=== PATIENT | male | born 1965 | race Caucasian/White ===

== ENCOUNTER 2021-01-31 13:25 | Inpatient (IN) | payer BC ==
[2021-01-31 14:45] LABS: BASO % 0.3 % (0-2.0); HEMATOCRIT 25.7 % (35.4-49); HEMOGLOBIN 8.7 GM/dL (11.7-16.9); MCH 27.6 pg (25.7-33.7); MCHC 33.7 g/dl (32.0-35.9); MEAN CELL VOLUME 81.7 fl (80-96); MEAN PLT VOLUME 7.6 fl (7.5-11.1); MONO % 2.8 % (3.8-10.2); NEUT % 82.9 % (42.8-82.8); PLATELET COUNT 291 10^3/uL (134-434); RBC 3.15 M/mm3 (4.00-5.60); RDW 13.3 % (11.9-15.9)
[2021-01-31 14:53] LABS: VENOUS BASE EXCESS -12.2 mmol/L (-2-2); VENOUS O2 SATURATION 67.5 % (70-80); VENOUS PCO2 32.3 mmHg (38-52); VENOUS PH 7.251 (7.310-7.410)
[2021-01-31] MEDS ORDERED: PIPERACILLIN/TAZOB 3.375 GM 3.375 GM in DEXTROSE 5%-WATER - 50 ML IVPB ONE (15:02)
[2021-01-31] MEDS ORDERED: VANCOMYCIN 1 GM in D5W (PRE-DOCKED) 1,000 MG/250 ML IVPB ONE (15:02)
[2021-01-31 15:07] LABS: CHLORIDE 108 mmol/L (98-107); SODIUM 134 mmol/L (136-145)
[2021-01-31] MEDS ORDERED: SODIUM CHLORIDE 0.9% 1000 ML INFUS.BAG IV ONE (15:07)
[2021-01-31 15:09] LABS: ALBUMIN 1.8 g/dl (3.4-5.0); ANION GAP 9 MMOL/L (8-16); BLOOD UREA NITROGEN 76.3 mg/dL (7-18); CALCIUM 7.9 mg/dL (8.5-10.1); CO2 17 mmol/L (21-32)
[2021-01-31 15:12] LABS: CREATININE 4.1 mg/dL (0.55-1.3); SGPT/ALT 20 U/L (13-61)
[2021-01-31 15:13] LABS: SGOT/AST 27 U/L (15-37)
[2021-01-31 15:14] LABS: BILIRUBIN,TOTAL 0.3 mg/dL (0.2-1); GLUCOSE,RANDOM 439 mg/dL (74-106); TOT PROT 5.6 g/dl (6.4-8.2)
[2021-01-31 15:15] LABS: ALK PHOS 77 U/L (45-117)
[2021-01-31] MEDS ORDERED: PIPERACILLIN/TAZOB 3.375 GM 3.375 GM/50 ML BAG IVPB ONE (15:23)
[2021-01-31] MEDS ORDERED: VANCOMYCIN 1 GRAM (PRE-DOCKED) 1,000 MG/250 ML BAG IVPB ONE (15:23)
[2021-01-31] MEDS ORDERED: ALBUTEROL SO4 HFA INHALER IH PRN (20:52)
[2021-01-31] MEDS ORDERED: ACETAMINOPHEN 325 MG TABLET (FP) PO PRN (20:57)
[2021-01-31 21:03] LABS: INR 0.94 (0.83-1.09); PROTHROMBIN TIME (PATIENT) 11.5 SEC (9.7-13.0)
[2021-01-31 21:06] LABS: ACTIVATED PTT 29.9 SECONDS (25.2-36.5)
[2021-01-31 21:17] LABS: BILIRUBIN,DIRECT 0.1 mg/dL (0.0-0.2)
[2021-01-31] MEDS ORDERED: GABAPENTIN 100 MG CAPSULE ONE (22:05)
[2021-01-31] MEDS ORDERED: HEPARIN NA (PORCINE) 5,000 UNITS/ML 1ML VIAL ONE (22:05)
[2021-01-31] MEDS: HEPARIN NA (PORCINE) 5,000 UNITS/ML 1ML VIAL SQ SCH (22:27)
[2021-01-31] MEDS: GABAPENTIN 300 MG CAPSULE PO SCH (22:27)
[2021-01-31] MEDS ORDERED: PIPERACILLIN/TAZOB 2.25 GM 2.25 GM in DEXTROSE 5%-WATER - 50 ML IVPB SCH (22:29)
[2021-01-31] MEDS ORDERED: PIPERACILLIN/TAZOB 2.25 GM 2.25 GM/50 ML BAG IVPB ONE (23:25)
[2021-01-31] MEDS: PIPERACILLIN/TAZOB 2.25 GM 2.25 GM in DEXTROSE 5%-WATER - 50 ML IVPB SCH (23:33)
[2021-01-31] MEDS ORDERED: SODIUM CHLORIDE 1,000 ML IV SCH (23:45)
[2021-02-01 00:12] VITALS: BMI 25.7
[2021-02-01] MEDS ORDERED: PNEUMOC 13-VAL CONJ-DIP CRM/PF 0.5 ML DISP.SYRIN IM ONE (00:15)
[2021-02-01] MEDS: PIPERACILLIN/TAZOB 2.25 GM 2.25 GM in DEXTROSE 5%-WATER - 50 ML IVPB SCH ×4 (04:04→18:03)
[2021-02-01] MEDS ORDERED: PIPERACILLIN/TAZOBACTAM 2.25 GM VIAL IVPB ONE ×4 (05:01→17:02)
[2021-02-01] MEDS ORDERED: DEXTROSE 5%-WATER - 50 ML IVPB ONE ×5 (05:01→17:02)
[2021-02-01] MEDS: GABAPENTIN 300 MG CAPSULE PO SCH ×3 (05:04→21:33)
[2021-02-01] MEDS: HEPARIN NA (PORCINE) 5,000 UNITS/ML 1ML VIAL SQ SCH ×3 (05:04→21:32)
[2021-02-01 06:35] LABS: HEMATOCRIT 26.8 % (35.4-49); HEMOGLOBIN 9.2 GM/dL (11.7-16.9); MCH 28.1 pg (25.7-33.7); MCHC 34.5 g/dl (32.0-35.9); MEAN CELL VOLUME 81.3 fl (80-96); MEAN PLT VOLUME 7.9 fl (7.5-11.1); PLATELET COUNT 287 10^3/uL (134-434); RBC 3.29 M/mm3 (4.00-5.60); RDW 13.6 % (11.9-15.9); WHITE BLOOD COUNT 6.3 K/mm3 (4.0-10.0)
[2021-02-01 06:57] LABS: BLOOD UREA NITROGEN 81.1 mg/dL (7-18)
[2021-02-01 07:00] LABS: CALCIUM 7.6 mg/dL (8.5-10.1)
[2021-02-01 07:01] LABS: PHOSPHOROUS 3.6 mg/dL (2.5-4.9)
[2021-02-01] MEDS ORDERED: SODIUM CHLORIDE 0.45% 1,000 ML IV SCH (07:15)
[2021-02-01] MEDS ORDERED: SODIUM ZIRCONIUM CYCLOSILICATE (LOKELMA) 5 GM PACKET PO ONE (07:45)
[2021-02-01] MEDS ORDERED: SODIUM BICARBONATE 650 MG TABLET PO SCH (07:45)
[2021-02-01] MEDS ORDERED: PNEUMOCOCCAL 23 VACCINE 0.5 ML VIAL IM ONE (10:00)
[2021-02-01] MEDS ORDERED: FLU VACC QS2021-22(6MOS UP)/PF 60 MCG/0.5 ML SYRINGE IM ONE (10:00)
[2021-02-01] MEDS ORDERED: amLODIPine BESYLATE 10 MG TABLET (FP) PO SCH (10:00)
[2021-02-01] MEDS ORDERED: metoPROLOL SUCCINATE 25 MG TAB.SR.24H (FP) PO SCH (10:00)
[2021-02-01] MEDS ORDERED: SODIUM CHLORIDE 0.9% 500 ML INFUS.BAG IV ONE (10:07)
[2021-02-01] MEDS ORDERED: PT OWN MED DRAWER 7, Y5N ONE ×2 (10:07→13:10)
[2021-02-01] MEDS ORDERED: ACETAMINOPHEN 1000 MG/100 ML VIAL (NON FORMULARY) IVPB PRN (10:07)
[2021-02-01] MEDS: guaiFENesin/D-M SUGAR-FREE/ACLHOL-FREE 118 ML BOTTLE PO PRN (10:11)
[2021-02-01] MEDS: CYCLOBENZAPRINE HCL 10 MG TABLET (FP) PO PRN (10:11)
[2021-02-01] MEDS ORDERED: CEFTRIAXONE 1 GM in DEXTROSE 5%-WATER - 50 ML IVPB SCH ×2 (10:15→10:45)
[2021-02-01 10:39] LABS: BASO % 0.4 % (0-2.0); EOS % 0.1 % (0-4.5); HEMATOCRIT 26.9 % (35.4-49); HEMOGLOBIN 9.2 GM/dL (11.7-16.9); LYMPH % 16.3 % (8-40); MCH 27.4 pg (25.7-33.7); MCHC 34.1 g/dl (32.0-35.9); MEAN CELL VOLUME 80.4 fl (80-96); MEAN PLT VOLUME 7.6 fl (7.5-11.1); MONO % 2.9 % (3.8-10.2); NEUT % 80.3 % (42.8-82.8); PLATELET COUNT 289 10^3/uL (134-434); RBC 3.35 M/mm3 (4.00-5.60); RDW 13.7 % (11.9-15.9); WHITE BLOOD COUNT 5.7 K/mm3 (4.0-10.0)
[2021-02-01] MEDS ORDERED: cefTRIAXone SODIUM 1 GM VIAL ONE (10:44)
[2021-02-01] MEDS: AZITHROMYCIN IVPB 500 MG/250 ML BAG IVPB SCH (10:51)
[2021-02-01] MEDS: INSULIN SLIDING SCALE (NOVOLOG) 1 VIAL SQ SCH ×4 (11:08→21:45)
[2021-02-01 11:36] LABS: BLOOD UREA NITROGEN 76.6 mg/dL (7-18); CALCIUM 7.9 mg/dL (8.5-10.1); CREATININE 3.9 mg/dL (0.55-1.3)
[2021-02-01 11:44] LABS: ALBUMIN 1.6 g/dl (3.4-5.0); BILIRUBIN,TOTAL 0.8 mg/dL (0.2-1); BLOOD UREA NITROGEN 74.7 mg/dL (7-18); CREATININE 3.9 mg/dL (0.55-1.3); TOT PROT 5.4 g/dl (6.4-8.2)
[2021-02-01] MEDS: SODIUM BICARBONATE 8.4% - 150 MEQ in DEXTROSE 5%-WATER - 950 ML IV SCH (13:50)
[2021-02-01] MEDS ORDERED: VANCOMYCIN 1 GM in D5W (PRE-DOCKED) 1,000 MG/250 ML IVPB SCH (16:00)
[2021-02-01 19:42] LABS: EPI CELLS 3 /uL (0-25.1); HYALINE CASTS 1 /uL (0-3.1); PH,URINE 5.5 (5.0-8.0); URINE APPEARANCE CLEAR; URINE BACTERIA 7 /uL (0-1359); URINE BILIRUBIN NEGATIVE (NEGATIVE); URINE COLOR YELLOW; URINE GLUCOSE (UA) 2+ (NEGATIVE); URINE KETONE NEGATIVE (NEGATIVE); URINE LEUK ESTERASE NEGATIVE (NEGATIVE); URINE NITRITE NEGATIVE (NEGATIVE); URINE PROTEIN 3+ (NEGATIVE); URINE RBC 49 /uL (0-23.9); URINE UROBILINOGEN 0.2 mg/dL (0.2-1.0); URINE WBC 6 /uL (0-25.8)
[2021-02-01] MEDS: LABETALOL HCL 200 MG TABLET (FP) PO SCH (21:33)
[2021-02-01] MEDS: ATORVASTATIN CA 10 MG TABLET (FP) PO SCH (21:33)
[2021-02-01] MEDS ORDERED: INSULIN (LEVEMIR) 100 UNITS/ML UNITS SQ SCH (22:00)
[2021-02-02] MEDS: SODIUM BICARBONATE 8.4% - 150 MEQ in DEXTROSE 5%-WATER - 950 ML IV SCH (02:39)
[2021-02-02] MEDS: PIPERACILLIN/TAZOB 2.25 GM 2.25 GM in DEXTROSE 5%-WATER - 50 ML IVPB SCH ×3 (02:39→18:41)
[2021-02-02] MEDS ORDERED: PIPERACILLIN/TAZOBACTAM 2.25 GM VIAL IVPB ONE ×3 (05:39→17:57)
[2021-02-02] MEDS ORDERED: DEXTROSE 5%-WATER - 50 ML IVPB ONE ×3 (05:39→17:57)
[2021-02-02] MEDS: HEPARIN NA (PORCINE) 5,000 UNITS/ML 1ML VIAL SQ SCH ×3 (06:03→21:45)
[2021-02-02] MEDS: GABAPENTIN 300 MG CAPSULE PO SCH ×3 (06:03→21:45)
[2021-02-02] MEDS: INSULIN SLIDING SCALE (NOVOLOG) 1 VIAL SQ SCH ×4 (06:04→21:57)
[2021-02-02 06:59] LABS: BASO % 0.4 % (0-2.0); EOS % 0.4 % (0-4.5); HEMATOCRIT 24.8 % (35.4-49); HEMOGLOBIN 8.5 GM/dL (11.7-16.9); LYMPH % 25.2 % (8-40); MCH 27.4 pg (25.7-33.7); MCHC 34.4 g/dl (32.0-35.9); MEAN CELL VOLUME 79.6 fl (80-96); MEAN PLT VOLUME 7.7 fl (7.5-11.1); MONO % 5.9 % (3.8-10.2); NEUT % 68.1 % (42.8-82.8); PLATELET COUNT 292 10^3/uL (134-434); RBC 3.11 M/mm3 (4.00-5.60); RDW 13.6 % (11.9-15.9); WHITE BLOOD COUNT 5.4 K/mm3 (4.0-10.0)
[2021-02-02 07:08] LABS: CALCIUM 7.8 mg/dL (8.5-10.1)
[2021-02-02 07:09] LABS: ALBUMIN 1.4 g/dl (3.4-5.0); MAGNESIUM 2.2 mg/dL (1.8-2.4)
[2021-02-02 07:11] LABS: BLOOD UREA NITROGEN 58.4 mg/dL (7-18); URIC ACID 6.2 mg/dL (2.6-7.2)
[2021-02-02 07:12] LABS: CREATININE 3.2 mg/dL (0.55-1.3); PHOSPHOROUS 2.9 mg/dL (2.5-4.9)
[2021-02-02 07:13] LABS: BILIRUBIN,TOTAL 0.2 mg/dL (0.2-1); TOT PROT 5.1 g/dl (6.4-8.2)
[2021-02-02] MEDS: LACTATED RINGERS SOLUTION 1,000 ML/1,000 ML INFUS.BAG IV SCH (10:34)
[2021-02-02] MEDS: CYCLOBENZAPRINE HCL 10 MG TABLET (FP) PO PRN (10:35)
[2021-02-02] MEDS: guaiFENesin/D-M SUGAR-FREE/ACLHOL-FREE 118 ML BOTTLE PO PRN (10:35)
[2021-02-02] MEDS: LABETALOL HCL 200 MG TABLET (FP) PO SCH ×2 (10:35→21:46)
[2021-02-02] MEDS: AZITHROMYCIN IVPB 500 MG/250 ML BAG IVPB SCH (10:36)
[2021-02-02] MEDS: DEXAMETHASONE SOD PHOSPHATE 10 MG/1 ML VIAL IVPUSH SCH (15:04)
[2021-02-02] MEDS: ATORVASTATIN CA 10 MG TABLET (FP) PO SCH (21:46)
[2021-02-02] MEDS: INSULIN (LEVEMIR) 100 UNITS/ML UNITS SQ SCH (21:57)
[2021-02-03] MEDS: PIPERACILLIN/TAZOB 2.25 GM 2.25 GM in DEXTROSE 5%-WATER - 50 ML IVPB SCH ×3 (01:08→17:26)
[2021-02-03] MEDS: LACTATED RINGERS SOLUTION 1,000 ML/1,000 ML INFUS.BAG IV SCH ×2 (01:09→10:54)
[2021-02-03] MEDS ORDERED: PIPERACILLIN/TAZOBACTAM 2.25 GM VIAL IVPB ONE ×3 (01:11→17:23)
[2021-02-03] MEDS ORDERED: DEXTROSE 5%-WATER - 50 ML IVPB ONE ×3 (01:11→17:23)
[2021-02-03] MEDS: GABAPENTIN 300 MG CAPSULE PO SCH ×4 (06:04→22:22)
[2021-02-03] MEDS: HEPARIN NA (PORCINE) 5,000 UNITS/ML 1ML VIAL SQ SCH ×3 (06:04→22:22)
[2021-02-03] MEDS: INSULIN (LEVEMIR) 100 UNITS/ML UNITS SQ SCH ×2 (06:52→22:23)
[2021-02-03] MEDS: INSULIN SLIDING SCALE (NOVOLOG) 1 VIAL SQ SCH ×4 (06:52→22:22)
[2021-02-03 07:30] LABS: BASO % 0.2 % (0-2.0); HEMATOCRIT 26.7 % (35.4-49); HEMOGLOBIN 9.3 GM/dL (11.7-16.9); LYMPH % 18.6 % (8-40); MCH 27.8 pg (25.7-33.7); MCHC 34.7 g/dl (32.0-35.9); MEAN CELL VOLUME 80.2 fl (80-96); MEAN PLT VOLUME 7.6 fl (7.5-11.1); MONO % 9.7 % (3.8-10.2); NEUT % 71.5 % (42.8-82.8); PLATELET COUNT 334 10^3/uL (134-434); RBC 3.33 M/mm3 (4.00-5.60); RDW 13.3 % (11.9-15.9); WHITE BLOOD COUNT 3.1 K/mm3 (4.0-10.0)
[2021-02-03 07:55] LABS: ALBUMIN 1.4 g/dl (3.4-5.0); CALCIUM 7.7 mg/dL (8.5-10.1)
[2021-02-03 07:56] LABS: BLOOD UREA NITROGEN 54.7 mg/dL (7-18); MAGNESIUM 2.2 mg/dL (1.8-2.4)
[2021-02-03 07:59] LABS: PHOSPHOROUS 3.6 mg/dL (2.5-4.9)
[2021-02-03 08:00] LABS: BILIRUBIN,TOTAL 0.3 mg/dL (0.2-1); TOT PROT 5.3 g/dl (6.4-8.2)
[2021-02-03] MEDS: DEXAMETHASONE SOD PHOSPHATE 10 MG/1 ML VIAL IVPUSH SCH (09:55)
[2021-02-03] MEDS: LABETALOL HCL 200 MG TABLET (FP) PO SCH ×2 (09:56→22:01)
[2021-02-03] MEDS: guaiFENesin/D-M SUGAR-FREE/ACLHOL-FREE 118 ML BOTTLE PO PRN (11:10)
[2021-02-03] MEDS: PANTOPRAZOLE 20 MG TABLET PO SCH (13:23)
[2021-02-03] MEDS: ATORVASTATIN CA 10 MG TABLET (FP) PO SCH (22:01)
[2021-02-04] MEDS ORDERED: PIPERACILLIN/TAZOBACTAM 2.25 GM VIAL IVPB ONE ×3 (01:02→17:19)
[2021-02-04] MEDS ORDERED: DEXTROSE 5%-WATER - 50 ML IVPB ONE ×3 (01:03→17:19)
[2021-02-04] MEDS: PIPERACILLIN/TAZOB 2.25 GM 2.25 GM in DEXTROSE 5%-WATER - 50 ML IVPB SCH ×3 (01:07→17:31)
[2021-02-04] MEDS: HEPARIN NA (PORCINE) 5,000 UNITS/ML 1ML VIAL SQ SCH ×3 (06:32→21:32)
[2021-02-04] MEDS: GABAPENTIN 300 MG CAPSULE PO SCH ×4 (06:32→21:33)
[2021-02-04] MEDS: INSULIN SLIDING SCALE (NOVOLOG) 1 VIAL SQ SCH ×4 (06:42→21:34)
[2021-02-04] MEDS: INSULIN (LEVEMIR) 100 UNITS/ML UNITS SQ SCH ×2 (06:43→21:33)
[2021-02-04] MEDS ORDERED: PT OWN MED DRAWER 7, Y5N ONE ×2 (07:13→10:05)
[2021-02-04] MEDS: LABETALOL HCL 200 MG TABLET (FP) PO SCH ×2 (10:08→21:33)
[2021-02-04] MEDS: PANTOPRAZOLE 20 MG TABLET PO SCH (10:08)
[2021-02-04] MEDS: DEXAMETHASONE SOD PHOSPHATE 10 MG/1 ML VIAL IVPUSH SCH (10:09)
[2021-02-04] MEDS: guaiFENesin/D-M SUGAR-FREE/ACLHOL-FREE 118 ML BOTTLE PO PRN (10:11)
[2021-02-04] MEDS: LACTATED RINGERS SOLUTION 1,000 ML/1,000 ML INFUS.BAG IV SCH (12:05)
[2021-02-04] MEDS: ATORVASTATIN CA 10 MG TABLET (FP) PO SCH (21:33)
[2021-02-05] MEDS ORDERED: PIPERACILLIN/TAZOBACTAM 2.25 GM VIAL IVPB ONE ×2 (01:24→08:58)
[2021-02-05] MEDS ORDERED: DEXTROSE 5%-WATER - 50 ML IVPB ONE ×2 (01:24→08:58)
[2021-02-05] MEDS: PIPERACILLIN/TAZOB 2.25 GM 2.25 GM in DEXTROSE 5%-WATER - 50 ML IVPB SCH ×2 (01:46→09:44)
[2021-02-05] MEDS: INSULIN SLIDING SCALE (NOVOLOG) 1 VIAL SQ SCH ×4 (06:13→21:13)
[2021-02-05] MEDS: GABAPENTIN 300 MG CAPSULE PO SCH ×3 (06:13→21:13)
[2021-02-05] MEDS: HEPARIN NA (PORCINE) 5,000 UNITS/ML 1ML VIAL SQ SCH ×3 (06:13→21:12)
[2021-02-05] MEDS: INSULIN (LEVEMIR) 100 UNITS/ML UNITS SQ SCH ×2 (06:13→21:12)
[2021-02-05 07:03] LABS: BASO % 0.1 % (0-2.0); HEMATOCRIT 25.8 % (35.4-49); HEMOGLOBIN 9.1 GM/dL (11.7-16.9); LYMPH % 12.7 % (8-40); MCH 27.8 pg (25.7-33.7); MCHC 35.2 g/dl (32.0-35.9); MEAN CELL VOLUME 79.1 fl (80-96); MEAN PLT VOLUME 7.4 fl (7.5-11.1); MONO % 9.2 % (3.8-10.2); PLATELET COUNT 422 10^3/uL (134-434); RBC 3.26 M/mm3 (4.00-5.60); RDW 13.1 % (11.9-15.9); WHITE BLOOD COUNT 5.9 K/mm3 (4.0-10.0)
[2021-02-05 07:16] LABS: ALBUMIN 1.4 g/dl (3.4-5.0); CALCIUM 7.6 mg/dL (8.5-10.1)
[2021-02-05 07:17] LABS: BILIRUBIN,TOTAL 0.2 mg/dL (0.2-1); BLOOD UREA NITROGEN 53.8 mg/dL (7-18); TOT PROT 5.2 g/dl (6.4-8.2)
[2021-02-05 07:20] LABS: CREATININE 2.5 mg/dL (0.55-1.3)
[2021-02-05] MEDS: PANTOPRAZOLE 20 MG TABLET PO SCH (09:41)
[2021-02-05] MEDS: LABETALOL HCL 200 MG TABLET (FP) PO SCH ×2 (09:42→21:13)
[2021-02-05] MEDS: DEXAMETHASONE SOD PHOSPHATE 10 MG/1 ML VIAL IVPUSH SCH (09:45)
[2021-02-05] MEDS ORDERED: LACTATED RINGERS SOLUTION 1,000 ML/1,000 ML INFUS.BAG IV SCH (12:23)
[2021-02-05] MEDS: ATORVASTATIN CA 10 MG TABLET (FP) PO SCH (21:13)
[2021-02-06 06:48] LABS: EOS % 0.2 % (0-4.5); HEMOGLOBIN 8.8 GM/dL (11.7-16.9); LYMPH % 17.6 % (8-40); MCH 27.4 pg (25.7-33.7); MCHC 35.2 g/dl (32.0-35.9); MEAN PLT VOLUME 7.2 fl (7.5-11.1); MONO % 9.8 % (3.8-10.2); NEUT % 72.4 % (42.8-82.8); PLATELET COUNT 429 10^3/uL (134-434); RBC 3.21 M/mm3 (4.00-5.60); RDW 12.8 % (11.9-15.9); WHITE BLOOD COUNT 5.9 K/mm3 (4.0-10.0)
[2021-02-06] MEDS: HEPARIN NA (PORCINE) 5,000 UNITS/ML 1ML VIAL SQ SCH ×3 (07:03→21:26)
[2021-02-06] MEDS: GABAPENTIN 300 MG CAPSULE PO SCH ×3 (07:04→21:26)
[2021-02-06] MEDS: INSULIN SLIDING SCALE (NOVOLOG) 1 VIAL SQ SCH ×4 (07:10→21:26)
[2021-02-06] MEDS: INSULIN (LEVEMIR) 100 UNITS/ML UNITS SQ SCH ×2 (07:10→21:26)
[2021-02-06 07:14] LABS: ALBUMIN 1.4 g/dl (3.4-5.0); CALCIUM 7.6 mg/dL (8.5-10.1)
[2021-02-06 07:15] LABS: BLOOD UREA NITROGEN 49.1 mg/dL (7-18); MAGNESIUM 1.7 mg/dL (1.8-2.4)
[2021-02-06 07:19] LABS: BILIRUBIN,TOTAL 0.2 mg/dL (0.2-1)
[2021-02-06] MEDS ORDERED: hydrALAZINE HCL 20 MG/ML VIAL IVPUSH PRN (10:37)
[2021-02-06] MEDS ORDERED: POTASSIUM CHLORIDE ORAL LIQUID 20 MEQ/15 ML PO ONE (10:45)
[2021-02-06] MEDS: PANTOPRAZOLE 20 MG TABLET PO SCH (10:50)
[2021-02-06] MEDS: DEXAMETHASONE SOD PHOSPHATE 10 MG/1 ML VIAL IVPUSH SCH (10:50)
[2021-02-06] MEDS: LABETALOL HCL 200 MG TABLET (FP) PO SCH ×2 (10:50→21:26)
[2021-02-06 14:39] LABS: PHOSPHOROUS 2.8 mg/dL (2.5-4.9)
[2021-02-06] MEDS: ATORVASTATIN CA 10 MG TABLET (FP) PO SCH (21:26)
[2021-02-06] MEDS ORDERED: INSULIN (NOVOLOG) ASPART 100 UNITS/ML 10ML VIAL SQ ONE (22:53)
[2021-02-06] MEDS ORDERED: Insulin (LOG) Aspart 100 UNITS/ML VIAL SQ ONE (22:53)
[2021-02-07 06:46] LABS: HEMATOCRIT 26.1 % (35.4-49); HEMOGLOBIN 9.3 GM/dL (11.7-16.9); MCH 27.4 pg (25.7-33.7); MCHC 35.5 g/dl (32.0-35.9); MEAN CELL VOLUME 77.1 fl (80-96); MEAN PLT VOLUME 7.1 fl (7.5-11.1); PLATELET COUNT 455 10^3/uL (134-434); RBC 3.38 M/mm3 (4.00-5.60); WHITE BLOOD COUNT 5.6 K/mm3 (4.0-10.0)
[2021-02-07] MEDS: INSULIN (LEVEMIR) 100 UNITS/ML UNITS SQ SCH ×2 (06:51→22:28)
[2021-02-07] MEDS: GABAPENTIN 300 MG CAPSULE PO SCH ×3 (06:51→21:08)
[2021-02-07] MEDS: HEPARIN NA (PORCINE) 5,000 UNITS/ML 1ML VIAL SQ SCH ×2 (06:51→14:22)
[2021-02-07] MEDS: INSULIN SLIDING SCALE (NOVOLOG) 1 VIAL SQ SCH ×4 (06:52→22:29)
[2021-02-07 07:02] LABS: ALBUMIN 1.6 g/dl (3.4-5.0); MAGNESIUM 2.1 mg/dL (1.8-2.4)
[2021-02-07 07:03] LABS: BLOOD UREA NITROGEN 45.3 mg/dL (7-18)
[2021-02-07 07:06] LABS: BILIRUBIN,TOTAL 0.2 mg/dL (0.2-1); CREATININE 1.8 mg/dL (0.55-1.3); PHOSPHOROUS 2.6 mg/dL (2.5-4.9)
[2021-02-07 07:07] LABS: TOT PROT 5.4 g/dl (6.4-8.2)
[2021-02-07] MEDS: DEXAMETHASONE SOD PHOSPHATE 10 MG/1 ML VIAL IVPUSH SCH (09:07)
[2021-02-07] MEDS: PANTOPRAZOLE 20 MG TABLET PO SCH (09:08)
[2021-02-07] MEDS: LABETALOL HCL 200 MG TABLET (FP) PO SCH ×2 (09:08→22:29)
[2021-02-07 10:04] LABS: ANISOCYTOSIS 0; MACROCYTOSIS 0; PLATELET ESTIMATE NORMAL
[2021-02-07] MEDS: ATORVASTATIN CA 10 MG TABLET (FP) PO SCH (22:29)
[2021-02-07] MEDS ORDERED: Insulin (LOG) Aspart 100 UNITS/ML VIAL SQ ONE (22:53)
[2021-02-08] MEDS ORDERED: PT OWN MED DRAWER 7, Y5N ONE ×2 (05:42→09:31)
[2021-02-08] MEDS: INSULIN (LEVEMIR) 100 UNITS/ML UNITS SQ SCH (06:33)
[2021-02-08] MEDS: GABAPENTIN 300 MG CAPSULE PO SCH ×2 (06:33→13:16)
[2021-02-08] MEDS: INSULIN SLIDING SCALE (NOVOLOG) 1 VIAL SQ SCH ×3 (06:33→17:13)
[2021-02-08 06:51] LABS: BASO % 0.1 % (0-2.0); EOS % 0.6 % (0-4.5); HEMATOCRIT 24.7 % (35.4-49); HEMOGLOBIN 8.9 GM/dL (11.7-16.9); LYMPH % 20.9 % (8-40); MCH 27.8 pg (25.7-33.7); MEAN CELL VOLUME 77.3 fl (80-96); MEAN PLT VOLUME 7.4 fl (7.5-11.1); MONO % 9.2 % (3.8-10.2); NEUT % 69.2 % (42.8-82.8); PLATELET COUNT 494 10^3/uL (134-434); RDW 12.8 % (11.9-15.9); WHITE BLOOD COUNT 7.1 K/mm3 (4.0-10.0)
[2021-02-08 07:26] LABS: CREATININE 1.9 mg/dL (0.55-1.3)
[2021-02-08 07:27] LABS: BILIRUBIN,TOTAL 0.2 mg/dL (0.2-1)
[2021-02-08 07:28] LABS: ALBUMIN 1.5 g/dl (3.4-5.0); BLOOD UREA NITROGEN 50.8 mg/dL (7-18); MAGNESIUM 1.7 mg/dL (1.8-2.4); TOT PROT 5.1 g/dl (6.4-8.2)
[2021-02-08 07:31] LABS: CALCIUM 7.8 mg/dL (8.5-10.1); PHOSPHOROUS 3.1 mg/dL (2.5-4.9)
[2021-02-08] MEDS: LABETALOL HCL 200 MG TABLET (FP) PO SCH (09:50)
[2021-02-08] MEDS: PANTOPRAZOLE 20 MG TABLET PO SCH (09:50)
[2021-02-08] MEDS: DEXAMETHASONE SOD PHOSPHATE 10 MG/1 ML VIAL IVPUSH SCH (09:52)
[2021-02-08] MEDS ORDERED: cloNIDine-TTS 0.1 MG/24 HRS PATCH.TDWK TD SCH (10:00)
[2021-02-08 17:07] VITALS: BP 142/74; PULSE 80; TEMP 97.8
== END 2021-02-08 16:45 | disposition home or self-care (01) | DRG 177 ==
LOC: JER 13:25 → JERBED 15:47 → J2W 02-01 00:06
PROVIDERS: ADMIT Family Medicine
DX: U07.1 COVID-19 (principal); J12.82 Pneumonia due to coronavirus disease 2019; J96.01 Acute respiratory failure with hypoxia; N17.9 Acute kidney failure, unspecified; E87.2 Acidosis; Z79.4 Long term (current) use of insulin; Z79.84 Long term (current) use of oral hypoglycemic drugs; E11.65 Type 2 diabetes mellitus with hyperglycemia; D64.9 Anemia, unspecified; M54.2 Cervicalgia; E87.5 Hyperkalemia; E11.22 Type 2 diabetes mellitus with diabetic chronic kidney disease; I12.9 Hypertensive chronic kidney disease with stage 1 through stage 4 chronic kidney disease, or unspecified chronic kidney disease; N18.32 Chronic kidney disease, stage 3b; E87.6 Hypokalemia
CPT/HCPCS: 36415; 71045-TC-FY; 76775-TC; 76856-TC; 80048; 80053; 81003; 82010; 82248; 82436; 82550; 82553; 82570; 82728; 82803; 82962; 83540; 83550; 83605; 83615; 83735; 84100; 84133; 84156; 84300; 84550; 85025; 85027; 85379; 85610; 85730; 86140; 87040; 87804; 87899; 90732; 93005; 93010; 94010; 94761; 97116-GP; 97161-GP; 99285-25; C9803; G0009; J1100; J1644; U0003; U0005

== ENCOUNTER 2022-01-08 18:17 | Emergency (ER) | payer BC, OTHER ==
[2022-01-08 19:13] VITALS: TEMP 98.8; BMI 30.9
[2022-01-08] MEDS ORDERED: ACETAMINOPHEN 325 MG TABLET (FP) PO ONE (20:02)
[2022-01-08] MEDS ORDERED: ACETAMINOPHEN 325 MG TABLET (FP) ONE (20:05)
[2022-01-08] MEDS ORDERED: morphine CARPU-JECT 4 MG/1 ML DISP.SYRIN IVPUSH ONE (21:54)
[2022-01-09] MEDS ORDERED: morphine SULFATE 4 MG/ML VIAL ONE (00:16)
[2022-01-09] MEDS ORDERED: KETAMINE HCL 200 MG/20 ML VIAL IVPUSH ONE ×2 (00:38→01:40)
[2022-01-09] MEDS ORDERED: KETAMINE HCL 200 MG/20 ML VIAL ONE (00:52)
[2022-01-09] MEDS ORDERED: cloNIDine-TTS 0.1 MG/24 HRS PATCH.TDWK TD ONE (02:12)
[2022-01-09 02:14] VITALS: RESP 16
[2022-01-09 02:17] VITALS: PULSE 92
[2022-01-09 03:04] VITALS: BP 187/101
[2022-01-09] MEDS ORDERED: cloNIDine-TTS 0.1 MG/24 HRS PATCH.TDWK TD SCH (10:00)
== END 2022-01-09 03:26 | disposition home or self-care (01) ==
LOC: JER 18:17
PROC: 3E033GC Introduction of Other Therapeutic Substance into Peripheral Vein, Percutaneous Approach (ICD-10-PCS; principal; 2022-01-08)
PROC: 3E033NZ Introduction of Analgesics, Hypnotics, Sedatives into Peripheral Vein, Percutaneous Approach (ICD-10-PCS; 2022-01-08)
DX: S89.92XA Unspecified injury of left lower leg, initial encounter (principal); W10.9XXA Fall (on) (from) unspecified stairs and steps, initial encounter
CPT/HCPCS: 73502-TC-LT-FY; 73552-TC-LT-FY; 73562-TC-LT-FY; 73590-TC-LT-FY; 73700-TC-RT; 99285-25

== ENCOUNTER 2022-12-30 12:17 | Inpatient (IN) | payer BC ==
[2022-12-30 13:01] LABS: BASO % 0.7 % (0-2.0); EOS % 3.4 % (0-4.5); HEMATOCRIT 31.8 % (35.4-49); HEMOGLOBIN 10.5 GM/dL (11.7-16.9); LYMPH % 26.5 % (8-40); MCH 26.7 pg (25.7-33.7); MCHC 33.1 g/dl (32.0-35.9); MEAN CELL VOLUME 80.4 fl (80-96); MEAN PLT VOLUME 6.9 fl (7.5-11.1); MONO % 7.2 % (3.8-10.2); NEUT % 62.2 % (42.8-82.8); PLATELET COUNT 327 10^3/uL (134-434); RBC 3.96 M/mm3 (4.00-5.60); RDW 13.8 % (11.9-15.9)
[2022-12-30 13:24] LABS: CHLORIDE 112 mmol/L (98-107)
[2022-12-30 13:26] LABS: ALBUMIN 3.6 g/dl (3.4-5.0); CO2 22 mmol/L (21-32)
[2022-12-30 13:29] LABS: CREATININE 4.6 mg/dL (0.55-1.3); SGPT/ALT 27 U/L (13-61)
[2022-12-30 13:30] LABS: SGOT/AST 9 U/L (15-37)
[2022-12-30 13:31] LABS: BILIRUBIN,TOTAL 0.3 mg/dL (0.2-1)
[2022-12-30 13:32] LABS: ALK PHOS 73 U/L (45-117); ANION GAP 9 MMOL/L (8-16); GLUCOSE,RANDOM 32 mg/dL (74-106); SODIUM 144 mmol/L (136-145)
[2022-12-30] MEDS ORDERED: CALCIUM GLUCONATE 10% - 1,000 MG/10 ML VIAL IVPUSH ONE (13:45)
[2022-12-30] MEDS ORDERED: SODIUM BICARBONATE 8.4% 50 MEQ/50 ML DISP.SYRIN IVPUSH ONE (13:52)
[2022-12-30] MEDS ORDERED: INSULIN REGULAR HUMAN 100 UNITS/ML *VIAL IVPUSH ONE (13:52)
[2022-12-30] MEDS ORDERED: DEXTROSE 50%-WATER - 25 GM/50 ML VIAL IVPUSH ONE (13:53)
[2022-12-30] MEDS ORDERED: CALCIUM GLUC IN NACL, ISO-OSM 1 GM/50 ML BAG IVPB ONE (14:17)
[2022-12-30] MEDS ORDERED: DEXTROSE 50%-WATER 25 GM/50 ML DISP.SYRIN ONE (14:17)
[2022-12-30] MEDS ORDERED: ACETAMINOPHEN 325 MG TABLET (FP) PO PRN (14:18)
[2022-12-30] MEDS ORDERED: SODIUM BICARBONATE 8.4% 50 MEQ/50 ML DISP.SYRIN ONE (14:19)
[2022-12-30 14:37] LABS: IRON SERUM 64 ug/dL (50-175); TOTAL IRON BINDING CAPACITY 224 ug/dL (250-450)
[2022-12-30] MEDS: ALBUTEROL SO4 2.5/IPRATROPIUM 0.5 INH SOL 3 ML VIAL.NEB. NEB SCH ×2 (15:08→15:09)
[2022-12-30] MEDS: INSULIN SLIDING SCALE (NOVOLOG) 1 VIAL SQ SCH ×2 (15:47→21:02)
[2022-12-30] MEDS ORDERED: SODIUM CHLORIDE 0.45% 1,000 ML IV SCH (17:15)
[2022-12-30] MEDS ORDERED: SODIUM ZIRCONIUM CYCLOSILICATE (LOKELMA) 10 GM PACKET ONE (17:27)
[2022-12-30] MEDS ORDERED: SODIUM ZIRCONIUM CYCLOSILICATE (LOKELMA) 5 GM PACKET PO SCH (17:30)
[2022-12-30] MEDS: SODIUM ZIRCONIUM CYCLOSILICATE (LOKELMA) 5 GM PACKET PO SCH (19:09)
[2022-12-30] MEDS ORDERED: LABETALOL HCL 200 MG TABLET (FP) ONE ×2 (19:44→21:04)
[2022-12-30] MEDS ORDERED: ROSUVASTATIN CA 20 MG TABLET ONE (21:04)
[2022-12-30] MEDS ORDERED: GABAPENTIN 400 MG CAPSULE ONE (21:05)
[2022-12-30] MEDS: LABETALOL HCL 200 MG TABLET (FP) PO SCH (21:11)
[2022-12-30] MEDS: INSULIN (LEVEMIR) 100 UNITS/ML UNITS SQ SCH (21:11)
[2022-12-30] MEDS: ROSUVASTATIN CA 20 MG TABLET PO SCH (21:11)
[2022-12-30] MEDS: GABAPENTIN 400 MG CAPSULE PO SCH (21:11)
[2022-12-30] MEDS: SODIUM BICARBONATE 650 MG TABLET PO SCH (21:19)
[2022-12-31 00:05] VITALS: BMI 28.0
[2022-12-31] MEDS ORDERED: hydrALAZINE HCL 20 MG/ML VIAL IVPUSH ONE (00:17)
[2022-12-31] MEDS: GABAPENTIN 400 MG CAPSULE PO SCH ×3 (06:18→21:32)
[2022-12-31] MEDS: INSULIN SLIDING SCALE (NOVOLOG) 1 VIAL SQ SCH ×4 (06:52→21:33)
[2022-12-31] MEDS: INSULIN (LEVEMIR) 100 UNITS/ML UNITS SQ SCH ×2 (06:56→21:33)
[2022-12-31 08:03] LABS: POTASSIUM 5.4 mmol/L (3.5-5.1)
[2022-12-31 08:11] LABS: CALCIUM 8.9 mg/dL (8.5-10.1)
[2022-12-31 08:12] LABS: ALBUMIN 3.2 g/dl (3.4-5.0)
[2022-12-31 08:13] LABS: BLOOD UREA NITROGEN 57.2 mg/dL (7-18)
[2022-12-31 08:16] LABS: CREATININE 4.3 mg/dL (0.55-1.3)
[2022-12-31 08:17] LABS: TOT PROT 6.3 g/dl (6.4-8.2)
[2022-12-31 08:18] LABS: BILIRUBIN,TOTAL 0.3 mg/dL (0.2-1)
[2022-12-31 08:22] LABS: HEMATOCRIT 31.8 % (35.4-49); HEMOGLOBIN 10.4 GM/dL (11.7-16.9); MCH 26.7 pg (25.7-33.7); MCHC 32.6 g/dl (32.0-35.9); MEAN CELL VOLUME 81.8 fl (80-96); MEAN PLT VOLUME 7.8 fl (7.5-11.1); PLATELET COUNT 321 10^3/uL (134-434); RBC 3.88 M/mm3 (4.00-5.60); RDW 13.6 % (11.9-15.9); WHITE BLOOD COUNT 8.6 K/mm3 (4.0-10.0)
[2022-12-31] MEDS ORDERED: SODIUM ZIRCONIUM CYCLOSILICATE (LOKELMA) 5 GM PACKET PO SCH (10:00)
[2022-12-31] MEDS: SODIUM ZIRCONIUM CYCLOSILICATE (LOKELMA) 5 GM PACKET PO SCH (10:11)
[2022-12-31] MEDS: LABETALOL HCL 200 MG TABLET (FP) PO SCH ×2 (10:11→21:32)
[2022-12-31] MEDS: FAMOTIDINE 20 MG TABLET PO SCH (10:11)
[2022-12-31] MEDS: SODIUM BICARBONATE 650 MG TABLET PO SCH ×2 (10:11→21:33)
[2022-12-31] MEDS: hydrALAZINE HCL 25 MG TABLET (FP) PO SCH ×2 (14:23→21:33)
[2022-12-31] MEDS ORDERED: INSULIN (NOVOLOG) ASPART 100 UNITS/ML 10ML VIAL ONE (21:02)
[2022-12-31] MEDS: ROSUVASTATIN CA 20 MG TABLET PO SCH (21:32)
[2023-01-01] MEDS: hydrALAZINE HCL 25 MG TABLET (FP) PO SCH ×2 (05:35→15:11)
[2023-01-01] MEDS: GABAPENTIN 400 MG CAPSULE PO SCH ×2 (05:35→15:10)
[2023-01-01] MEDS: INSULIN (LEVEMIR) 100 UNITS/ML UNITS SQ SCH (06:13)
[2023-01-01] MEDS: INSULIN SLIDING SCALE (NOVOLOG) 1 VIAL SQ SCH ×2 (06:14→11:57)
[2023-01-01] MEDS: SODIUM ZIRCONIUM CYCLOSILICATE (LOKELMA) 5 GM PACKET PO SCH (09:36)
[2023-01-01] MEDS: SODIUM BICARBONATE 650 MG TABLET PO SCH (09:36)
[2023-01-01] MEDS: FAMOTIDINE 20 MG TABLET PO SCH (09:36)
[2023-01-01] MEDS: LABETALOL HCL 200 MG TABLET (FP) PO SCH (09:37)
[2023-01-01] MEDS ORDERED: NIFEdipine E.R. 30 MG TABLET PO SCH (10:00)
[2023-01-01] MEDS ORDERED: cloNIDine-TTS 0.3 MG /24 HRS PATCH.TDWK TD SCH (10:00)
[2023-01-01 10:07] VITALS: TEMP 98.3
[2023-01-01 13:33] VITALS: BP 157/87; PULSE 83; RESP 22
[2023-01-01 15:21] LABS: POTASSIUM 5.1 mmol/L (3.5-5.1)
[2023-01-01 15:22] LABS: CALCIUM 8.7 mg/dL (8.5-10.1)
[2023-01-01 15:23] LABS: BLOOD UREA NITROGEN 55.2 mg/dL (7-18)
[2023-01-01 15:26] LABS: CREATININE 4.5 mg/dL (0.55-1.3)
== END 2023-01-01 17:05 | disposition home or self-care (01) | DRG 641 ==
LOC: SUPCPDRO 12:17 → JER 12:17 → JERBED 13:54 → J4W 23:29
PROVIDERS: ADMIT Family Medicine; ATTEND Family Medicine
DX: E87.5 Hyperkalemia (principal); N17.9 Acute kidney failure, unspecified; E78.5 Hyperlipidemia, unspecified; E11.9 Type 2 diabetes mellitus without complications; I12.9 Hypertensive chronic kidney disease with stage 1 through stage 4 chronic kidney disease, or unspecified chronic kidney disease; N18.9 Chronic kidney disease, unspecified
CPT/HCPCS: 36415; 76775-TC; 80048; 80053; 82728; 82962; 83036; 83540; 83550; 85025; 85027; 93005; 93010; 99285-25

== ENCOUNTER 2023-02-20 12:27 | Emergency (ER) | payer BC ==
[2023-02-20 13:27] VITALS: TEMP 98.7
[2023-02-20 13:55] VITALS: BMI 26.9
[2023-02-20 14:47] LABS: BASO % 0.6 % (0-2.0); EOS % 1.1 % (0-4.5); HEMATOCRIT 28.2 % (35.4-49); HEMOGLOBIN 9.2 GM/dL (11.7-16.9); MCHC 32.7 g/dl (32.0-35.9); MEAN CELL VOLUME 79.6 fl (80-96); MEAN PLT VOLUME 6.8 fl (7.5-11.1); NEUT % 79.3 % (42.8-82.8); PLATELET COUNT 285 10^3/uL (134-434); RBC 3.54 M/mm3 (4.00-5.60); RDW 14.5 % (11.9-15.9); WHITE BLOOD COUNT 9.5 K/mm3 (4.0-10.0)
[2023-02-20 15:22] LABS: CALCIUM 9.3 mg/dL (8.5-10.1)
[2023-02-20 15:23] LABS: ALBUMIN 3.6 g/dl (3.4-5.0); BLOOD UREA NITROGEN 49.9 mg/dL (7-18)
[2023-02-20 15:26] LABS: CREATININE 4.4 mg/dL (0.55-1.3)
[2023-02-20 15:28] LABS: BILIRUBIN,TOTAL 0.4 mg/dL (0.2-1); TOT PROT 7.2 g/dl (6.4-8.2)
[2023-02-20 15:47] VITALS: RESP 14
[2023-02-20 16:48] VITALS: BP 161/79; PULSE 78
== END 2023-02-20 16:51 | disposition home or self-care (01) ==
LOC: JER 12:27
DX: E11.649 Type 2 diabetes mellitus with hypoglycemia without coma (principal); R53.83 Other fatigue; R41.82 Altered mental status, unspecified
CPT/HCPCS: 36415; 80053; 82962; 84484; 85025; 93005; 93010; 99284-25

== ENCOUNTER 2023-12-16 13:23 | Inpatient (IN) | payer BC ==
[2023-12-16 13:29] VITALS: BMI 30.2
[2023-12-16 14:09] LABS: VENOUS BASE EXCESS 1.8 mmol/L (-2-2); VENOUS O2 SATURATION 57.1 % (70-80); VENOUS PCO2 44.9 mmHg (38-52); VENOUS PH 7.395 (7.310-7.410)
[2023-12-16 14:10] LABS: EOS % 4.2 % (0-4.5); HEMATOCRIT 21.4 % (35.4-49); HEMOGLOBIN 7.3 GM/dL (11.7-16.9); LYMPH % 12.2 % (8-40); MCHC 34.1 g/dl (32.0-35.9); MEAN PLT VOLUME 7.7 fl (7.5-11.1); MONO % 8.1 % (3.8-10.2); NEUT % 74.5 % (42.8-82.8); PLATELET COUNT 275 10^3/uL (134-434); RBC 2.52 M/mm3 (4.00-5.60); RDW 14.8 % (11.9-15.9); WHITE BLOOD COUNT 7.7 K/mm3 (4.0-10.0)
[2023-12-16 14:19] LABS: INR 1.16 (0.83-1.09)
[2023-12-16 14:21] LABS: ACTIVATED PTT 34.4 SECONDS (25.2-36.5)
[2023-12-16 14:25] LABS: CHLORIDE 107 mmol/L (98-107); POTASSIUM 3.6 mmol/L (3.5-5.1); SODIUM 145 mmol/L (136-145)
[2023-12-16 14:27] LABS: CALCIUM 8.3 mg/dL (8.5-10.1)
[2023-12-16 14:28] LABS: ALBUMIN 2.9 g/dl (3.4-5.0); ANION GAP 11 mmol/L (4-13); BLOOD UREA NITROGEN 64.9 mg/dL (7-18); CO2 27 mmol/L (21-32); GLUCOSE,RANDOM 201 mg/dL (74-106); MAGNESIUM 2.1 mg/dL (1.8-2.4)
[2023-12-16 14:31] LABS: PHOSPHOROUS 4.3 mg/dL (2.5-4.9); SGOT/AST 9 U/L (15-37); SGPT/ALT 18 U/L (13-61)
[2023-12-16 14:34] LABS: ALK PHOS 67 U/L (45-117); BILIRUBIN,TOTAL 0.7 mg/dL (0.2-1); TOT PROT 6.5 g/dl (6.4-8.2)
[2023-12-16 14:35] LABS: CREATININE 8.5 mg/dL (0.55-1.3)
[2023-12-16] MEDS ORDERED: SODIUM CHLORIDE 250 ML IV PRN (14:59)
[2023-12-16] MEDS: INSULIN ASPART SLIDING SCALE (NOVOLOG) 1 VIAL SQ SCH (17:26)
[2023-12-16] MEDS ORDERED: ACETAMINOPHEN 325 MG TABLET (FP) PO PRN (19:29)
[2023-12-16] MEDS: LABETALOL HCL 200 MG TABLET (FP) PO SCH (21:39)
[2023-12-16] MEDS: SODIUM BICARBONATE 650 MG TABLET PO SCH (21:39)
[2023-12-16] MEDS: hydrALAZINE HCL 25 MG TABLET (FP) PO SCH (21:39)
[2023-12-17] MEDS ORDERED: DEXTROSE 50%-WATER 25 GM/50 ML DISP.SYRIN ONE (05:53)
[2023-12-17] MEDS: DEXTROSE 50%-WATER - 25 GM/50 ML VIAL IVPUSH ONE (05:57)
[2023-12-17] MEDS: DEXTROSE 50%-WATER 25 GM/50 ML DISP.SYRIN IVPUSH ONE (06:43)
[2023-12-17 08:32] LABS: BASO % 0.4 % (0-2.0); EOS % 4.2 % (0-4.5); HEMATOCRIT 21.1 % (35.4-49); HEMOGLOBIN 7.1 GM/dL (11.7-16.9); LYMPH % 14.8 % (8-40); MCH 28.4 pg (25.7-33.7); MCHC 33.7 g/dl (32.0-35.9); MEAN CELL VOLUME 84.4 fl (80-96); MEAN PLT VOLUME 8.1 fl (7.5-11.1); MONO % 9.7 % (3.8-10.2); NEUT % 70.9 % (42.8-82.8); PLATELET COUNT 256 10^3/uL (134-434); RDW 14.8 % (11.9-15.9); WHITE BLOOD COUNT 6.7 K/mm3 (4.0-10.0)
[2023-12-17 08:52] LABS: CHLORIDE 106 mmol/L (98-107); POTASSIUM 3.7 mmol/L (3.5-5.1); SODIUM 140 mmol/L (136-145)
[2023-12-17 09:00] LABS: ALBUMIN 2.7 g/dl (3.4-5.0); ANION GAP 11 mmol/L (4-13); CALCIUM 8.2 mg/dL (8.5-10.1); CO2 24 mmol/L (21-32); GLUCOSE,RANDOM 87 mg/dL (74-106); MAGNESIUM 2.1 mg/dL (1.8-2.4)
[2023-12-17 09:02] LABS: BLOOD UREA NITROGEN 67.7 mg/dL (7-18)
[2023-12-17 09:04] LABS: PHOSPHOROUS 4.5 mg/dL (2.5-4.9); SGOT/AST 8 U/L (15-37); SGPT/ALT 16 U/L (13-61)
[2023-12-17 09:05] LABS: BILIRUBIN,TOTAL 0.6 mg/dL (0.2-1); CREATININE 8.1 mg/dL (0.55-1.3); TOT PROT 5.8 g/dl (6.4-8.2)
[2023-12-17 09:06] LABS: ALK PHOS 59 U/L (45-117)
[2023-12-17] MEDS: NIFEdipine E.R. 30 MG TABLET PO SCH (10:04)
[2023-12-17] MEDS ORDERED: HEPARIN NA (PORCINE) 5,000 UNITS/ML 1ML VIAL ONE (10:38)
[2023-12-17] MEDS ORDERED: LIDOCAINE HCL 1%, 10 MG/ML (20ML VIAL) ONE (10:38)
[2023-12-17] MEDS ORDERED: MIDAZOLAM HCL 2 MG/2 ML SINGLE DOSE VIAL ONE (11:19)
[2023-12-17] MEDS ORDERED: PROPOFOL 20 ML ONE (11:19)
[2023-12-17] MEDS: ceFAZolin SODIUM 1 GM VIAL IVPB ONE (11:50)
[2023-12-17] MEDS: HEPARIN NA (PORCINE) 1,000 UNITS/ML 10ML M-D VIAL SQ ONE (11:56)
[2023-12-17] MEDS: LIDOCAINE 1% P/F 10 MG/ML VIAL INF ONE (11:56)
[2023-12-17] MEDS ORDERED: SODIUM CHLORIDE 1,000 ML IV SCH (12:30)
[2023-12-17] MEDS ORDERED: ACETAMINOPHEN 325 MG TABLET (FP) PO PRN (12:32)
[2023-12-17] MEDS ORDERED: SODIUM CHLORIDE 250 ML IV PRN (12:32)
[2023-12-17] MEDS: hydrALAZINE HCL 25 MG TABLET (FP) PO SCH (15:31)
[2023-12-17] MEDS: INSULIN ASPART SLIDING SCALE (NOVOLOG) 1 VIAL SQ SCH (17:42)
[2023-12-17] MEDS: ROSUVASTATIN CA 20 MG TABLET PO SCH (21:50)
[2023-12-17] MEDS: LABETALOL HCL 200 MG TABLET (FP) PO SCH (21:51)
[2023-12-17] MEDS ORDERED: ROSUVASTATIN CA 20 MG TABLET PO SCH (22:00)
[2023-12-17] MEDS ORDERED: SODIUM BICARBONATE 650 MG TABLET PO SCH (22:00)
[2023-12-18] MEDS: NIFEdipine E.R. 30 MG TABLET PO SCH (09:42)
[2023-12-18] MEDS: PANTOPRAZOLE 40 MG TABLET PO SCH (09:42)
[2023-12-18] MEDS ORDERED: SODIUM CHLORIDE 250 ML IV PRN (10:00)
[2023-12-18] MEDS ORDERED: PANTOPRAZOLE 40 MG TABLET PO SCH (10:00)
[2023-12-18 13:18] LABS: BASO % 0.8 % (0-2.0); HEMATOCRIT 21.7 % (35.4-49); HEMOGLOBIN 7.3 GM/dL (11.7-16.9); LYMPH % 18.1 % (8-40); MCH 28.3 pg (25.7-33.7); MCHC 33.4 g/dl (32.0-35.9); MEAN CELL VOLUME 84.8 fl (80-96); MONO % 10.4 % (3.8-10.2); NEUT % 67.7 % (42.8-82.8); PLATELET COUNT 267 10^3/uL (134-434); RBC 2.56 M/mm3 (4.00-5.60); RDW 14.4 % (11.9-15.9)
[2023-12-18 13:32] LABS: POTASSIUM 4.1 mmol/L (3.5-5.1)
[2023-12-18 13:34] LABS: ALBUMIN 2.7 g/dl (3.4-5.0); BLOOD UREA NITROGEN 50.6 mg/dL (7-18); CALCIUM 8.3 mg/dL (8.5-10.1)
[2023-12-18 13:37] LABS: CREATININE 6.6 mg/dL (0.55-1.3)
[2023-12-18 13:39] LABS: BILIRUBIN,TOTAL 0.5 mg/dL (0.2-1); TOT PROT 5.9 g/dl (6.4-8.2)
[2023-12-19 09:03] LABS: INR 1.07 (0.83-1.09); PROTHROMBIN TIME (PATIENT) 12.3 SEC (9.7-13.0)
[2023-12-19 09:06] LABS: ACTIVATED PTT 30.7 SECONDS (25.2-36.5)
[2023-12-19 09:10] LABS: POTASSIUM 4.5 mmol/L (3.5-5.1)
[2023-12-19 09:13] LABS: BASO % 0.6 % (0-2.0); EOS % 3.6 % (0-4.5); HEMATOCRIT 20.3 % (35.4-49); LYMPH % 15.6 % (8-40); MCH 28.2 pg (25.7-33.7); MCHC 33.4 g/dl (32.0-35.9); MEAN CELL VOLUME 84.3 fl (80-96); MEAN PLT VOLUME 8.1 fl (7.5-11.1); MONO % 9.8 % (3.8-10.2); NEUT % 70.4 % (42.8-82.8); PLATELET COUNT 233 10^3/uL (134-434); RDW 14.3 % (11.9-15.9)
[2023-12-19 09:15] LABS: ALBUMIN 2.6 g/dl (3.4-5.0); BLOOD UREA NITROGEN 63.2 mg/dL (7-18); CALCIUM 8.2 mg/dL (8.5-10.1); HEMOGLOBIN 6.8 GM/dL (11.7-16.9)
[2023-12-19 09:19] LABS: CREATININE 7.3 mg/dL (0.55-1.3)
[2023-12-19 09:20] LABS: BILIRUBIN,TOTAL 0.6 mg/dL (0.2-1); TOT PROT 5.7 g/dl (6.4-8.2)
[2023-12-19] MEDS: EPOETIN ALFA-EPBX 10,000 UNIT/ML VIAL IVPUSH ONE (10:00)
[2023-12-19] MEDS ORDERED: MIDAZOLAM HCL 2 MG/2 ML SINGLE DOSE VIAL ONE (13:55)
[2023-12-19] MEDS ORDERED: PROPOFOL 20 ML ONE (13:55)
[2023-12-19] MEDS ORDERED: DEXMEDETOMIDINE HCL 200 MCG/2 ML IVPB ONE (13:58)
[2023-12-19] MEDS ORDERED: HEPARIN NA (PORCINE) 5,000 UNITS/ML 1ML VIAL ONE (14:19)
[2023-12-19] MEDS: ceFAZolin SODIUM 1 GM VIAL IVPB ONE (15:05)
[2023-12-19] MEDS: LIDOCAINE HCL 1%, 10 MG/ML (20ML VIAL) INF ONE (15:18)
[2023-12-19] MEDS: POVIDONE-IODINE OINTMENT 10% - 28.4 GM TUBE TP ONE (15:18)
[2023-12-19] MEDS ORDERED: ceFAZolin SODIUM 1 GM VIAL ONE (16:13)
[2023-12-19] MEDS ORDERED: ONDANSETRON 4 MG/2 ML VIAL ONE (16:13)
[2023-12-19] MEDS ORDERED: DEXAMETHASONE SOD PHOSPHATE 4 MG/1 ML VIAL ONE (16:13)
[2023-12-19] MEDS ORDERED: ONDANSETRON 4 MG/2 ML VIAL IVPUSH PRN ×2 (16:23→17:20)
[2023-12-19] MEDS ORDERED: ACETAMINOPHEN INJECTION 100 ML ONE (17:33)
[2023-12-19] MEDS: ACETAMINOPHEN 1000 MG/100 ML BAG IVPB ONE (17:38)
[2023-12-19] MEDS: SODIUM CHLORIDE 1,000 ML IV SCH (17:38)
[2023-12-19] MEDS: POLYETHYLENE GLYCOL 3350 255 GM BTL PO ONE ×2 (18:33→19:33)
[2023-12-19] MEDS: ROSUVASTATIN CA 20 MG TABLET PO SCH (21:43)
[2023-12-19] MEDS: hydrALAZINE HCL 25 MG TABLET (FP) PO SCH (21:43)
[2023-12-19] MEDS: LABETALOL HCL 200 MG TABLET (FP) PO SCH (21:43)
[2023-12-19] MEDS: INSULIN ASPART SLIDING SCALE (NOVOLOG) 1 VIAL SQ SCH (21:44)
[2023-12-20] MEDS: ACETAMINOPHEN WITH CODEINE 300MG/30MG TABLET PO PRN (05:39)
[2023-12-20] MEDS ORDERED: POLYETHYLENE GLYCOL (HEALTHYLAX) 3350 17 GM PACKET PO SCH (10:00)
[2023-12-20] MEDS: POLYETHYLENE GLYCOL (HEALTHYLAX) 3350 17 GM PACKET PO SCH (10:41)
[2023-12-20] MEDS: NIFEdipine E.R. 30 MG TABLET PO SCH (10:42)
[2023-12-20] MEDS: PANTOPRAZOLE 40 MG TABLET PO SCH (10:42)
[2023-12-20] MEDS: SODIUM CHLORIDE 1,000 ML IV SCH (12:38)
[2023-12-20] MEDS: ACETAMINOPHEN 1000 MG/100 ML BAG IVPB ONE (12:38)
[2023-12-21 10:19] LABS: BASO % 0.9 % (0-2.0); EOS % 3.5 % (0-4.5); HEMATOCRIT 25.8 % (35.4-49); HEMOGLOBIN 8.6 GM/dL (11.7-16.9); LYMPH % 12.6 % (8-40); MCH 27.3 pg (25.7-33.7); MCHC 33.1 g/dl (32.0-35.9); MEAN CELL VOLUME 82.5 fl (80-96); MEAN PLT VOLUME 8.3 fl (7.5-11.1); PLATELET COUNT 226 10^3/uL (134-434); RBC 3.13 M/mm3 (4.00-5.60); RDW 18.8 % (11.9-15.9); WHITE BLOOD COUNT 8.9 K/mm3 (4.0-10.0)
[2023-12-21 10:44] LABS: POTASSIUM 4.7 mmol/L (3.5-5.1)
[2023-12-21 10:54] LABS: ALBUMIN 2.6 g/dl (3.4-5.0); BLOOD UREA NITROGEN 50.1 mg/dL (7-18); CALCIUM 8.4 mg/dL (8.5-10.1)
[2023-12-21 10:59] LABS: CREATININE 6.4 mg/dL (0.55-1.3)
[2023-12-21 11:00] LABS: BILIRUBIN,TOTAL 1.3 mg/dL (0.2-1)
[2023-12-21 11:01] LABS: TOT PROT 5.7 g/dl (6.4-8.2)
[2023-12-22 07:58] LABS: HEMATOCRIT 25.1 % (35.4-49); HEMOGLOBIN 8.4 GM/dL (11.7-16.9); MCH 27.2 pg (25.7-33.7); MCHC 33.5 g/dl (32.0-35.9); MEAN CELL VOLUME 81.3 fl (80-96); PLATELET COUNT 244 10^3/uL (134-434); RBC 3.09 M/mm3 (4.00-5.60); RDW 17.9 % (11.9-15.9); WHITE BLOOD COUNT 6.9 K/mm3 (4.0-10.0)
[2023-12-22 08:20] LABS: CALCIUM 8.5 mg/dL (8.5-10.1)
[2023-12-22 08:21] LABS: ALBUMIN 2.6 g/dl (3.4-5.0); BLOOD UREA NITROGEN 59.3 mg/dL (7-18)
[2023-12-22 08:24] LABS: CREATININE 6.8 mg/dL (0.55-1.3)
[2023-12-22 08:26] LABS: BILIRUBIN,TOTAL 0.8 mg/dL (0.2-1); TOT PROT 5.8 g/dl (6.4-8.2)
[2023-12-22] MEDS ORDERED: SODIUM CHLORIDE 250 ML IV PRN (09:17)
[2023-12-22] MEDS: HEPARIN NA (PORCINE) 5,000 UNITS/ML 1ML VIAL IVPUSH ONE (09:35)
[2023-12-22] MEDS ORDERED: NIFEdipine E.R. 30 MG TABLET PO ONE (11:15)
[2023-12-22] MEDS: IRON SUCROSE INJECTION 100 MG in SODIUM CHLORIDE 95 ML IVPB ONE (11:48)
[2023-12-22] MEDS: EPOETIN ALFA-EPBX 10,000 UNIT/ML VIAL SQ ONE (12:20)
[2023-12-22] MEDS ORDERED: INSULIN ASPART SLIDING SCALE (NOVOLOG) 1 VIAL SQ ONE (12:41)
[2023-12-22] MEDS: NIFEdipine E.R. 30 MG TABLET PO ONE (13:29)
[2023-12-22] MEDS: hydrALAZINE HCL 50 MG TABLET (FP) PO SCH (14:35)
[2023-12-22] MEDS ORDERED: ONDANSETRON 4 MG/2 ML VIAL IVPUSH PRN (20:47)
[2023-12-22] MEDS: ACETAMINOPHEN 325 MG TABLET (FP) PO PRN (22:31)
[2023-12-23 22:13] VITALS: RESP 18
[2023-12-24] MEDS ORDERED: SODIUM CHLORIDE 250 ML IV PRN (08:02)
[2023-12-24 10:05] LABS: HEMATOCRIT 25.7 % (35.4-49); HEMOGLOBIN 8.6 GM/dL (11.7-16.9); MCH 27.7 pg (25.7-33.7); MCHC 33.4 g/dl (32.0-35.9); MEAN PLT VOLUME 7.8 fl (7.5-11.1); PLATELET COUNT 252 10^3/uL (134-434); RDW 17.9 % (11.9-15.9); WHITE BLOOD COUNT 7.6 K/mm3 (4.0-10.0)
[2023-12-24] MEDS: EPOETIN ALFA-EPBX 10,000 UNIT/ML VIAL SQ ONE (10:18)
[2023-12-24] MEDS: HEPARIN NA (PORCINE) 5,000 UNITS/ML 1ML VIAL IVPUSH ONE (10:18)
[2023-12-24 10:50] VITALS: PULSE 94
[2023-12-24 11:07] LABS: ALBUMIN 2.6 g/dl (3.4-5.0); BLOOD UREA NITROGEN 35.1 mg/dL (7-18); CALCIUM 8.5 mg/dL (8.5-10.1); POTASSIUM 4.4 mmol/L (3.5-5.1)
[2023-12-24 11:08] LABS: CREATININE 5.3 mg/dL (0.55-1.3)
[2023-12-24 11:11] LABS: BILIRUBIN,TOTAL 0.9 mg/dL (0.2-1); TOT PROT 5.8 g/dl (6.4-8.2)
[2023-12-24 11:54] VITALS: BP 149/70; TEMP 98.6
== END 2023-12-24 12:51 | disposition home or self-care (01) | DRG 673 ==
LOC: JER 13:23 → JERBED 14:36 → J7W 20:26
PROVIDERS: ADMIT Internal Medicine; ATTEND Internal Medicine
PROC: 05HM33Z Insertion of Infusion Device into Right Internal Jugular Vein, Percutaneous Approach (ICD-10-PCS; 2023-12-17)
PROC: 30233N1 Transfusion of Nonautologous Red Blood Cells into Peripheral Vein, Percutaneous Approach (ICD-10-PCS; 2023-12-19)
PROC: 03183ZF Bypass Left Brachial Artery to Lower Arm Vein, Percutaneous Approach (ICD-10-PCS; principal; 2023-12-19 14:30)
PROC: 5A1D70Z Performance of Urinary Filtration, Intermittent, Less than 6 Hours Per Day (ICD-10-PCS; 2023-12-24)
DX: I12.0 Hypertensive chronic kidney disease with stage 5 chronic kidney disease or end stage renal disease (principal); N18.6 End stage renal disease; E11.22 Type 2 diabetes mellitus with diabetic chronic kidney disease; E78.5 Hyperlipidemia, unspecified; D63.1 Anemia in chronic kidney disease; K59.00 Constipation, unspecified; E66.9 Obesity, unspecified; Z68.30 Body mass index [BMI] 30.0-30.9, adult; K21.9 Gastro-esophageal reflux disease without esophagitis
CPT/HCPCS: 0241U-QW; 36415; 36430; 71045-TC-FY; 76000-TC-FY; 80053; 82728; 82803; 82962; 83540; 83550; 83735; 83880; 84100; 84443; 84466; 85025; 85027; 85610; 85730; 86705; 86706; 86803; 86850; 86900; 86901; 86922; 87340; 93005; 93010; 93970-TC; 94760; 99285-25; C1750; J0131; J1644; J1756; P9058; Q5106

== ENCOUNTER 2023-12-26 16:08 | Inpatient (IN) | payer BC ==
[2023-12-26] MEDS ORDERED: ACETAMINOPHEN INJECTION 100 ML ONE (17:42)
[2023-12-26 18:27] LABS: BASO % 0.9 % (0-2.0); EOS % 1.2 % (0-4.5); HEMATOCRIT 30.3 % (35.4-49); HEMOGLOBIN 10.1 GM/dL (11.7-16.9); LYMPH % 14.9 % (8-40); MCH 27.3 pg (25.7-33.7); MCHC 33.4 g/dl (32.0-35.9); MEAN CELL VOLUME 81.9 fl (80-96); MONO % 11.6 % (3.8-10.2); NEUT % 71.4 % (42.8-82.8); PLATELET COUNT 351 10^3/uL (134-434); RDW 17.6 % (11.9-15.9); WHITE BLOOD COUNT 7.8 K/mm3 (4.0-10.0)
[2023-12-26] MEDS: ACETAMINOPHEN 1000 MG/100 ML BAG IVPB ONE (18:27)
[2023-12-26 19:02] LABS: POTASSIUM 4.2 mmol/L (3.5-5.1)
[2023-12-26 19:05] LABS: ALBUMIN 3.1 g/dl (3.4-5.0); CALCIUM 8.8 mg/dL (8.5-10.1)
[2023-12-26 19:08] LABS: CREATININE 4.8 mg/dL (0.55-1.3)
[2023-12-26 19:10] LABS: BILIRUBIN,TOTAL 0.9 mg/dL (0.2-1); TOT PROT 6.5 g/dl (6.4-8.2)
[2023-12-26] MEDS ORDERED: PANTOPRAZOLE SODIUM 40 MG/100 ML BAG IVPB ONE (19:50)
[2023-12-26] MEDS: PANTOPRAZOLE SODIUM 40 MG VIAL IVPUSH ONE (19:57)
[2023-12-26] MEDS ORDERED: FUROSEMIDE 40 MG/4 ML INJECTABLE VIAL ONE (23:12)
[2023-12-26] MEDS: FUROSEMIDE 40 MG/4 ML INJECTABLE VIAL IVPUSH ONE (23:14)
[2023-12-27] MEDS ORDERED: DOCUSATE SODIUM 100 MG CAPSULE (FP) PO PRN (00:04)
[2023-12-27] MEDS ORDERED: ACETAMINOPHEN 325 MG TABLET (FP) PO PRN (00:30)
[2023-12-27] MEDS ORDERED: hydrALAZINE HCL 50 MG TABLET (FP) ONE (01:10)
[2023-12-27] MEDS: hydrALAZINE HCL 50 MG TABLET (FP) PO ONE (01:14)
[2023-12-27 01:57] VITALS: BMI 28.1
[2023-12-27] MEDS: hydrALAZINE HCL 50 MG TABLET (FP) PO SCH (06:11)
[2023-12-27] MEDS: INSULIN ASPART SLIDING SCALE (NOVOLOG) 1 VIAL SQ SCH (06:12)
[2023-12-27] MEDS: ACETAMINOPHEN 500 MG TABLET (FP) PO PRN (08:24)
[2023-12-27] MEDS: LABETALOL HCL 200 MG TABLET (FP) PO SCH (10:05)
[2023-12-27] MEDS: PANTOPRAZOLE 40 MG TABLET PO SCH (10:05)
[2023-12-27] MEDS: SODIUM BICARBONATE 650 MG TABLET PO SCH (10:05)
[2023-12-27] MEDS: NIFEdipine E.R. 30 MG TABLET PO SCH (10:05)
[2023-12-27] MEDS: CYANOCOBALAMIN 1,000 MCG TABLET (FP) PO SCH (10:05)
[2023-12-27] MEDS ORDERED: INSULIN ASPART SLIDING SCALE (NOVOLOG) 1 VIAL SQ ONE (11:18)
[2023-12-27] MEDS ORDERED: ALBUMIN HUMAN 25% 12.5 GM/50 ML VIAL IV SCH (11:30)
[2023-12-27] MEDS: PATIENT'S OWN MEDICATION (NON-FORMULARY) (Iron [Iron] 18 MG Tablet) PO SCH (11:40)
[2023-12-27 12:29] LABS: BASO % 0.9 % (0-2.0); EOS % 1.3 % (0-4.5); HEMATOCRIT 30.4 % (35.4-49); LYMPH % 10.1 % (8-40); MCH 27.3 pg (25.7-33.7); MEAN CELL VOLUME 82.7 fl (80-96); MEAN PLT VOLUME 6.8 fl (7.5-11.1); MONO % 9.2 % (3.8-10.2); NEUT % 78.5 % (42.8-82.8); PLATELET COUNT 345 10^3/uL (134-434); RBC 3.67 M/mm3 (4.00-5.60); RDW 17.9 % (11.9-15.9); WHITE BLOOD COUNT 8.4 K/mm3 (4.0-10.0)
[2023-12-27 12:49] LABS: POTASSIUM 3.8 mmol/L (3.5-5.1)
[2023-12-27 12:51] LABS: CALCIUM 8.7 mg/dL (8.5-10.1)
[2023-12-27 12:53] LABS: ALBUMIN 2.8 g/dl (3.4-5.0); BLOOD UREA NITROGEN 28.6 mg/dL (7-18)
[2023-12-27 12:55] LABS: CREATININE 5.4 mg/dL (0.55-1.3)
[2023-12-27 12:57] LABS: BILIRUBIN,TOTAL 0.7 mg/dL (0.2-1); TOT PROT 5.9 g/dl (6.4-8.2)
[2023-12-27] MEDS: HEPARIN NA (PORCINE) 5,000 UNITS/ML 1ML VIAL SQ SCH (13:29)
[2023-12-27] MEDS ORDERED: SODIUM CHLORIDE 250 ML IV PRN (15:36)
[2023-12-27] MEDS ORDERED: EPOETIN ALFA-EPBX 4,000 UNIT/ML VIAL IVPUSH ONE (15:45)
[2023-12-27] MEDS: HEPARIN NA (PORCINE) 5,000 UNITS/ML 1ML VIAL IVPUSH ONE (18:25)
[2023-12-27] MEDS ORDERED: ROSUVASTATIN CA 20 MG TABLET PO SCH (22:00)
[2023-12-27 22:59] LABS: EPI CELLS 20 /uL (0-25.1); HYALINE CASTS 2 /uL (0-3.1); PH,URINE 7.5 (5.0-8.0); URINE APPEARANCE CLEAR; URINE BACTERIA 20 /uL (0-1359); URINE BILIRUBIN NEGATIVE (NEGATIVE); URINE COLOR YELLOW; URINE GLUCOSE (UA) 1+ (NEGATIVE); URINE KETONE 1+ (NEGATIVE); URINE LEUK ESTERASE NEGATIVE (NEGATIVE); URINE NITRITE NEGATIVE (NEGATIVE); URINE PROTEIN 4+ (NEGATIVE); URINE RBC 31 /uL (0-23.9); URINE UROBILINOGEN 0.2 mg/dL (0.2-1.0); URINE WBC 22 /uL (0-25.8)
[2023-12-28 08:38] LABS: INR 1.08 (0.83-1.09); PROTHROMBIN TIME (PATIENT) 12.2 SEC (9.7-13.0)
[2023-12-28 08:41] LABS: ACTIVATED PTT 32.2 SECONDS (25.2-36.5); BASO % 1.2 % (0-2.0); EOS % 2.4 % (0-4.5); HEMATOCRIT 31.6 % (35.4-49); HEMOGLOBIN 10.5 GM/dL (11.7-16.9); LYMPH % 16.2 % (8-40); MCH 27.4 pg (25.7-33.7); MCHC 33.1 g/dl (32.0-35.9); MEAN CELL VOLUME 82.8 fl (80-96); MEAN PLT VOLUME 6.9 fl (7.5-11.1); MONO % 13.5 % (3.8-10.2); NEUT % 66.7 % (42.8-82.8); PLATELET COUNT 325 10^3/uL (134-434); RBC 3.82 M/mm3 (4.00-5.60); WHITE BLOOD COUNT 7.4 K/mm3 (4.0-10.0)
[2023-12-28 08:45] LABS: POTASSIUM 3.8 mmol/L (3.5-5.1)
[2023-12-28 08:51] LABS: ALBUMIN 2.8 g/dl (3.4-5.0); BLOOD UREA NITROGEN 17.2 mg/dL (7-18); CALCIUM 8.7 mg/dL (8.5-10.1); MAGNESIUM 1.8 mg/dL (1.8-2.4)
[2023-12-28 08:54] LABS: CREATININE 4.1 mg/dL (0.55-1.3); PHOSPHOROUS 3.6 mg/dL (2.5-4.9)
[2023-12-28 08:55] LABS: BILIRUBIN,TOTAL 0.8 mg/dL (0.2-1); TOT PROT 5.8 g/dl (6.4-8.2)
[2023-12-28] MEDS: CEFTRIAXONE 1 GM in DEXTROSE 5%-WATER - 50 ML IVPB SCH (10:03)
[2023-12-28] MEDS: NIFEdipine E.R 60 MG TABLET PO SCH (10:03)
[2023-12-28] MEDS ORDERED: INSULIN ASPART SLIDING SCALE (NOVOLOG) 1 VIAL SQ ONE ×2 (11:25→17:27)
[2023-12-28] MEDS: FUROSEMIDE 40 MG/4 ML INJECTABLE VIAL IVPB ONE (13:09)
[2023-12-28] MEDS: EPOETIN ALFA-EPBX 4,000 UNIT/ML VIAL IVPUSH ONE (17:10)
[2023-12-29] MEDS: FUROSEMIDE 40 MG/4 ML INJECTABLE VIAL IVPB ONE (14:31)
[2023-12-30 10:40] VITALS: RESP 18
[2023-12-30] MEDS ORDERED: SODIUM CHLORIDE 250 ML IV PRN (13:00)
[2023-12-30] MEDS: RIFAXIMIN 550 MG TABLET PO SCH (15:21)
[2023-12-30] MEDS ORDERED: INSULIN ASPART SLIDING SCALE (NOVOLOG) 1 VIAL SQ ONE (17:00)
[2023-12-30] MEDS: LIPASE/PROTEASE/AMYLASE 36,000 UNIT CAPSULE PO SCH (18:15)
[2023-12-30] MEDS: ALBUMIN HUMAN 25% 12.5 GM/50 ML VIAL IV SCH (18:30)
[2023-12-30 18:54] LABS: HEMOGLOBIN 9.1 GM/dL (11.7-16.9); MCH 27.9 pg (25.7-33.7); MCHC 33.8 g/dl (32.0-35.9); MEAN CELL VOLUME 82.4 fl (80-96); MEAN PLT VOLUME 7.1 fl (7.5-11.1); PLATELET COUNT 255 10^3/uL (134-434); RBC 3.28 M/mm3 (4.00-5.60); RDW 17.3 % (11.9-15.9)
[2023-12-30 19:15] LABS: POTASSIUM 3.8 mmol/L (3.5-5.1)
[2023-12-30 19:16] LABS: CALCIUM 7.8 mg/dL (8.5-10.1)
[2023-12-30 19:20] LABS: CREATININE 7.3 mg/dL (0.55-1.3)
[2023-12-30] MEDS: EPOETIN ALFA-EPBX 4,000 UNIT/ML VIAL SQ ONE (20:24)
[2023-12-30] MEDS: POLYETHYLENE GLYCOL (HEALTHYLAX) 3350 17 GM PACKET PO PRN (21:27)
[2023-12-30] MEDS: ISOSORBIDE MONONITRATE 30 MG TAB.SR.24H (FP) PO SCH (21:27)
[2023-12-31 09:37] VITALS: BP 137/72; PULSE 98; TEMP 98.4
[2023-12-31] MEDS ORDERED: FUROSEMIDE 40 MG/4 ML INJECTABLE VIAL IVPUSH ONE (10:30)
== END 2023-12-31 10:41 | disposition home or self-care (01) | DRG 391 ==
LOC: JER 16:08 → JERBED 22:46 → J8W 12-27 01:46
PROVIDERS: ADMIT Internal Medicine; ATTEND Family Medicine
PROC: 5A1D70Z Performance of Urinary Filtration, Intermittent, Less than 6 Hours Per Day (ICD-10-PCS; principal; 2023-12-27)
PROC: 5A1D70Z Performance of Urinary Filtration, Intermittent, Less than 6 Hours Per Day (ICD-10-PCS; 2023-12-30)
DX: K52.89 Other specified noninfective gastroenteritis and colitis (principal); N18.6 End stage renal disease; J90 Pleural effusion, not elsewhere classified; I12.0 Hypertensive chronic kidney disease with stage 5 chronic kidney disease or end stage renal disease; N17.9 Acute kidney failure, unspecified; I31.39 Other pericardial effusion (noninflammatory); K55.1 Chronic vascular disorders of intestine; E78.5 Hyperlipidemia, unspecified; K21.9 Gastro-esophageal reflux disease without esophagitis; K86.89 Other specified diseases of pancreas; K82.8 Other specified diseases of gallbladder; D64.9 Anemia, unspecified; K81.1 Chronic cholecystitis; K22.70 Barrett's esophagus without dysplasia; E11.22 Type 2 diabetes mellitus with diabetic chronic kidney disease; E66.9 Obesity, unspecified; Z68.27 Body mass index [BMI] 27.0-27.9, adult; Z99.2 Dependence on renal dialysis
CPT/HCPCS: 36415; 71045-TC-FY; 74174-TC; 74176-TC; 76705-TC; 80048; 80053; 81003; 82962; 83690; 83735; 84100; 84484; 85025; 85027; 85610; 85730; 87045; 87046; 87086; 87186; 87209; 87324; 87449; 93005; 93010; 93306-TC; 99285-25; J0131; J1644; Q5106

== ENCOUNTER 2024-02-19 04:50 | Day surgery (SDC) | payer BC ==
[2024-02-16 15:35] VITALS: BMI 29.0
[2024-02-19] MEDS ORDERED: LIDOCAINE HCL 1%, 10 MG/ML (20ML VIAL) ONE (10:07)
[2024-02-19] MEDS ORDERED: HEPARIN NA (PORCINE) 5,000 UNITS/ML 1ML VIAL ONE (10:07)
[2024-02-19 10:43] VITALS: RESP 18
[2024-02-19] MEDS ORDERED: MIDAZOLAM HCL 2 MG/2 ML SINGLE DOSE VIAL ONE (12:13)
[2024-02-19] MEDS: LIDOCAINE HCL 1%, 10 MG/ML (50 mL VIAL) INF ONE ×3 (12:24)
[2024-02-19] MEDS ORDERED: ONDANSETRON 4 MG/2 ML VIAL IVPUSH PRN (12:49)
[2024-02-19] MEDS ORDERED: LACTATED RINGERS SOLUTION 1,000 ML IV SCH (13:00)
[2024-02-19 13:34] VITALS: TEMP 97.6
[2024-02-19 13:55] VITALS: BP 148/75; PULSE 72
== END 2024-02-19 14:32 | disposition home or self-care (01) ==
LOC: JASU-SURG 04:50
PROVIDERS: ATTEND Surgery
PROC: 057A3DZ Dilation of Left Brachial Vein with Intraluminal Device, Percutaneous Approach (ICD-10-PCS; principal; 2024-02-19 11:00)
DX: T82.898A Other specified complication of vascular prosthetic devices, implants and grafts, initial encounter (principal); N18.6 End stage renal disease; Z99.2 Dependence on renal dialysis
CPT/HCPCS: 36415; 76000-TC-FY; 82962; 84132; 94760; J1644

== ENCOUNTER 2024-07-13 11:42 | Day surgery (SDC) | payer BC ==
[2024-07-13 12:48] LABS: ABSOLUTE IMMATURE GRANULOCYTES 0.02 x10^3/uL (0.0-0.031); BASOPHILS # 0.04 x10^3/uL (0.01-0.08); EOSINOPHIL % 3.2 % (0.8-7.0); EOSINOPHILS # 0.21 x10^3/uL (0.04-0.54); HEMATOCRIT 31.8 % (40.1-51.0); HEMOGLOBIN 10.1 g/dL (13.7-17.5); MCHC 31.8 g/dl (32.3-36.5); MEAN CELL VOLUME 84.1 fl (79.0-92.2); MONOCYTE # 0.58 x10^3/uL (0.30-0.82); MONOCYTE % 8.8 % (5.3-12.2); PLATELET COUNT 199 x10^3/uL (163-337); RDW 14.2 % (12.2-16.1)
[2024-07-13 12:52] LABS: INR 1.14 (0.83-1.09); PROTHROMBIN TIME (PATIENT) 12.5 SEC (9.7-13.0)
[2024-07-13 13:03] LABS: CHLORIDE 102 mmol/L (98-107); POTASSIUM 4.5 mmol/L (3.5-5.1); SODIUM 139 mmol/L (136-145)
[2024-07-13 13:05] LABS: ALBUMIN 3.3 g/dl (3.4-5.0); ANION GAP 9 mmol/L (4-13); BLOOD UREA NITROGEN 44.7 mg/dL (7-18); CO2 28 mmol/L (21-32)
[2024-07-13 13:06] LABS: GLUCOSE,RANDOM 204 mg/dL (74-106)
[2024-07-13] MEDS ORDERED: HEPARIN NA (PORCINE) 5,000 UNITS/ML 1ML VIAL ONE (13:06)
[2024-07-13 13:08] LABS: SGOT/AST 9 U/L (15-37); SGPT/ALT 14 U/L (13-61)
[2024-07-13 13:09] LABS: CREATININE 5.2 mg/dL (0.55-1.3)
[2024-07-13 13:10] LABS: BILIRUBIN,TOTAL 0.8 mg/dL (0.2-1); TOT PROT 6.6 g/dl (6.4-8.2)
[2024-07-13 13:11] LABS: ALK PHOS 73 U/L (45-117)
[2024-07-13] MEDS ORDERED: MIDAZOLAM HCL 2 MG/2 ML SINGLE DOSE VIAL ONE (13:16)
[2024-07-13] MEDS ORDERED: FENTANYL CITRATE/PF 50 MCG/ML VIAL ONE (13:19)
[2024-07-13] MEDS: MIDAZOLAM HCL 2 MG/2 ML SINGLE DOSE VIAL IVPUSH ONE (13:20)
[2024-07-13] MEDS: FENTANYL CITRATE/PF 50 MCG/ML VIAL IVPUSH ONE (13:23)
[2024-07-13 15:02] VITALS: BP 158/82; PULSE 81; RESP 17
== END 2024-07-13 14:58 | disposition home or self-care (01) ==
LOC: JRADIR 11:42
PROVIDERS: ATTEND Surgery
PROC: B50WYZZ Plain Radiography of Dialysis Shunt/Fistula using Other Contrast (ICD-10-PCS; principal; 2024-07-13)
DX: T85.858A Stenosis due to other internal prosthetic devices, implants and grafts, initial encounter (principal); Y82.8 Other medical devices associated with adverse incidents; Y92.9 Unspecified place or not applicable
CPT/HCPCS: 36415; 37248; 75820-TC-FY; 76000-TC-FY; 76998-TC; 80053; 85025; 85610; C1725; C1769; C1894